=== PATIENT | female | born 1970 | race Caucasian/White ===

== ENCOUNTER 2024-05-15 12:17 | Emergency (ER) | payer OTHER, SELFPAY ==
[2024-05-15 12:26] VITALS: BP 179/117
[2024-05-15 12:51] LABS: % Basophils 1.1 % (0-2); % Eosinophils 1.3 % (0-6); % Immature Granulocytes 0.3 % (0-0.5); % Monocytes 8.5 % (1.7-9.3); % Neutrophils 52.8 % (42.2-75.2); Absolute Basophils 0.1 10^3/uL (0-0.2); Absolute Eosinophils 0.1 10^3/uL (0-0.7); Absolute Lymphocytes 2.5 10^3/uL (1.2-3.4); Absolute Monocytes 0.6 10^3/uL (0.1-0.6); Absolute Neutrophils 3.7 10^3/uL (1.4-6.5); Hematocrit 41.7 % (37.0-47.0); Hemoglobin 14.4 g/dL (12.0-16.0); Mean Corp Hgb Conc. 34.5 g/dL (33.0-37.0); Mean Corpuscular Hgb 29.4 pg (27.0-31.0); Mean Corpuscular Volume 85.1 fL (81.0-99.0); Mean Platelet Volume 12.4 fL (7.4-10.4); Nucleated Red Blood Cells % 0 %; Platelet Count 216 10^3/uL (130-400); Red Cell Dist. Width 12.9 % (11.5-14.5)
[2024-05-15 13:04] LABS: ALT (SGPT) 21 U/L (0-35); AST (SGOT) 27 U/L (14-36); Albumin 4.6 g/dl (3.5-5.0); Alkaline Phosphatase 68 U/L (38-126); Blood Urea Nitrogen 14 mg/dl (7-17); Calcium 9.6 mg/dl (8.4-10.2); Carbon Dioxide 32 mmol/L (22-30); Chloride 101 mmol/L (98-107); Glucose 98 mg/dl (70-99); Potassium 3.9 mmol/L (3.5-5.1); Sodium 144 mmol/L (135-145); Total Bilirubin 0.6 mg/dl (0.2-1.3); Total Protein 7.5 g/dl (6.3-8.2); eGFR > 60.00
[2024-05-15 15:19] VITALS: BP 173/86
--- NOTE | 2024-05-15 15:20 | ED.GENMED ---
History of Present Illness
General
Chief Complaint: Dizziness
Source: patient, records and spouse
Exam Limitations: none
Time Seen by Provider: 05/15/24 14:25
Nursing documentation reviewed up to this point in time: agreed with
History of Present Illness
History of Present Illness:
Patient was sent from urgent care for CT scan of the head after patient was seen for intermittent dizziness for the past 9 days. Patient states 2 weeks ago she had an upper respiratory infection. That seemed to resolve but for the last 9 days
patient's had intermittent episodes of feeling unsteady. Does not have to be with movement can be while at rest. Patient denies any decreased hearing or tinnitus. Patient denies any nasal congestion or ear congestion. Patient denies cough or
shortness of breath. Patient denies any palpitations or chest pain. Patient does get nauseous at times but has not vomited. Patient denies any fever or chills. Patient denies any focal weakness, visual or speech difficulties. Patient denies any
numbness or paresthesias. Patient denies any recent injuries.
Past History
Past History
ED Past Medical History: HTN
ED Past Surgical History: Other (LEEP proceedure)
Social History
Tobacco: Non-smoker
Alcohol: None
Drug: None
Personal:
Living: with family
Family History
Family History: Negative Early CAD
Review of Systems
Review of Systems
All Other Systems: ROS reviewed and negative except as documented in HPI and ROS
Constitutional: Reports no symptoms
EENT: Reports no symptoms; Denies sore throat or runny nose
Respiratory: Reports no symptoms; Denies cough or trouble breathing
Cardiac: Reports no symptoms; Denies palpitations
ABD/GI: Reports nausea; Denies abdominal pain, vomiting, diarrhea or constipated
: Reports no symptoms
Musculoskeletal: Reports no symptoms; Denies neck pain
Skin: Reports no symptoms
Neurological: Reports dizzy; Denies headache, weakness or numbness
Hematologic/Lymphatic: Reports no symptoms
Psychiatric: Reports no symptoms
Phy Exam
Physical Exam
Physical Exam:
Physical Exam
General: No apparent distress, alert and appropriate, well nourished, well hydrated
HENT: Normocephalic, supple with no lymphadenopathy, no thyromegaly. TMs intact and clear. Oropharynx clear.
Eyes: Clear sclera, conjuctiva without injection. Extraocular muscles intact. Pupils equal reactive to light. No nystagmus
Heart: Regular rhythm and rate. No S3, S4. No murmur. No NVD, bruit
Lungs: No respiratory distress, no stridor, lung sounds clear and equal bilaterally
Abdomen: Soft, nontender, no organomegaly, no CVA tenderness, BS good
Neuro: Alert and oriented x 3, CN II - XII intact, no motor focality, no cerebellar dysfunction
Skin: no rash
Psychiatric: well kept. interactive and cooperative
Extremities: No edema, cyanosis, tenderness, Good and equal peripheral pulses.
Course
Orders/Labs/Results
Orders:
Orders
05/15/24 12:29
Electrocardiogram (*1) Urgent
Reason for Study: Hypertension, Benign
CT Head W/o Iv Contrast Urgent
Comment: high bp
Reason For Exam: dizziness with mild pressure in left eye
05/15/24 12:30
EKG- Treatment ONCE
05/15/24 12:42
Complete Blood Count/With Diff Urgent
Comprehensive Metabolic Panel Urgent
05/15/24 15:25
Meclizine [Antivert] 25 mg PO NOW STA
Abnormal Lab Results
05/15/24
12:42
MPV 12.4 H fL
(7.4-10.4)
Carbon Dioxide 32 H mmol/L
(22-30)
05/15/24 12:42
05/15/24 12:42
Vital Signs
Initial and Last Documented VS:
Initial Vital Signs
Temp Pulse Resp BP Pulse Ox
98.0 F 70 16 179/117 98
05/15/24 12:26 05/15/24 12:26 05/15/24 12:05/15/24 12:05/15/24 12:26
Last Documented Vital Signs
Temp Pulse Resp BP Pulse Ox
98.0 F 70 16 173/86 98
05/15/24 12:26 05/15/24 12:05/15/24 12:05/15/24 15:19 05/15/24 12:26
*Radiology
Radiology exam reviewed: radiology read reviewed (CT unremarkable)
*Pulse Oximetry
Patient hypoxic: no
*EKG
Interpreted by ED Provider?: Yes
EKG Intrepretation Date: 05/15/24
EKG Intrepretation Time: 15:24
Interpretation: normal
Comparison EKG: no changes
Heart Rate: 67
Rate: normal
Rhythm: sinus
[place]: normal axis
Interval: normal interval
QRS Pattern: normal QRS
Ischemia: no ischemia
*Illusionist Interpretation
Rate: Illusionist- N/A
*Critical Care Note
Total Time (30-74mins, 75-104mins- exclusive of procedures): Not Applicable
ED Attending Note
-
Portions of this chart may have been created with voice recognition software.� Occasional wrong word or��sound alike� substitutions may have occurred due to the inherent limitations of voice recognition software.
Discharge Plan
Departure
Patient Disposition: Home (Routine Discharge)
Date of Disposition: 05/15/24
Time of Disposition: 15:26
Patient with high blood pressure during this ER visit?: Yes
Condition: Fair
Covid-19: Not Applicable
Discharge Problem:
Labyrinthitis, acute
Instructions: Vertigo (a Type of Dizziness) (DC), Dizziness, BLOOD PRESSURE
Prescriptions:
New
prednisone 20 mg tablet
20 mg PO BID Qty: 10 0RF
meclizine [Antivert] 25 mg Tablet,Chewable
25 mg PO Q8HPRN PRN (Reason: nausea or vertigo) Qty: 25 0RF
No Action
oxycodone-acetaminophen 5 MG/325 MG tablet
1 tab PO Q4HPRN PRN (Reason: Pain) Qty: 15 0RF
Referrals:
Jewel Gama DO [Family Provider] - Follow up in 5-7 days
Interventions
Interventions:
*Risk Screen - Suicide Last Done: 05/15/24 12:26
*General Assessment Last Done: 05/15/24 14:37
*Neglect/Abuse Screening Last Done: 05/15/24 12:26
ED- Fall Risk Assessment Last Done: 05/15/24 14:37
*ED COVID-19 Vaccine History Last Done: 05/15/24 14:37
ED- Neurological Assessment Last Done: 05/15/24 14:34
ED Swallowing Screen Last Done: 05/15/24 14:36
Discharge Date and Time
Print Language: BENGALI
[2024-05-15] MEDS: ANTIVERT 25 MG PO (15:44)
== END 2024-05-15 15:50 | disposition home or self-care (01) ==
LOC: EMR 12:17
PROVIDERS: Emergency Medicine; EMERGENCY PHYSICIAN Emergency Medicine; FAMILY PHYSICIAN Family Medicine
DX: H83.09 Labyrinthitis, unspecified ear (principal); I10 Essential (primary) hypertension
CPT/HCPCS: 99285; 70450; 80053; 85025; 93005